=== PATIENT | female | born 1985 | race Hispanic/Latino ===

== ENCOUNTER 2017-08-28 15:58 | Day surgery (SDC) | payer SELFPAY ==
[2017-08-28] MEDS ORDERED: Betamet Acet/Betamet Na Ph 30 MG/5 ML VIAL IM SCH (16:45)
[2017-08-28 16:47] VITALS: BMI 28.3
== END 2017-08-28 16:52 | disposition home or self-care (01) ==
LOC: L&D/OP 15:58
PROVIDERS: ATTEND Obstetrics & Gynecology
DX: O26.879 Cervical shortening, unspecified trimester (principal)
CPT/HCPCS: 96372; J0702

== ENCOUNTER 2017-09-24 19:46 | Inpatient (IN) | payer OTHER ==
[2017-09-24 20:21] VITALS: BMI 29.2
[2017-09-24 20:22] VITALS: TEMP 99.1
[2017-09-24] MEDS ORDERED: Butorphanol Tartrate 1 MG/ML VIAL SLOW IVP PRN (20:43)
[2017-09-24] MEDS ORDERED: Sodium Chloride 0.9% 1,000 ML IV SCH (20:45)
--- NOTE | 2017-09-24 20:54 | PDOC.LDHP ---
Labor and Delivery H&P Chief complaint: other HPI: 32 yo LAF presents c/o 24 hr h/o of pelvic pressure and back pain. Denies bleeding or SROM. Current gestational age (weeks): 34 Due date: 11/02/17 Dating criteria: last menstrual period Grav: 3 Para: 1 OB History Details: PNC with Dr. Thomas. Cerclage placed by [facility] for 'short cervix". Steroids given 08/2017. H/o previous C/S in [place] at 27 weeks, indication unknown to patient. Current complications: none Abnormal US findings: No Past Medical History: None Current medications: pre- vitamins Previous surgical history: other (C/s as above) Allergies/Adverse Reactions: Allergies Allergy/AdvReac Type Severity Reaction Status Date / Time No Known Allergies Allergy Verified 09/24/17 20:19 Social history: none - Physical Exam Vital signs reviewed and normal: yes General: NAD Lungs: nonlabored breathing Abdomen: gravid Extremeties: trace edema FHT: variability present Browns contractions every: q 2-3 mins - Vaginal Exam cm dilated: 0 (closed, cerclage in place) Effacement: 90% Station: -1 - OB Labs Blood type: unknown RH: unknown Antibody Screen: unknown HIV: unknown RPR: unknown HEPSAg: unknown 1 hour GCT: unknown GBS: unknown - Assessment 34 3/7 weeks PTL UCs with cerclage in place Steroids given 08/2017 h/o C/S - Plan -: Hydrate and sedate. UA obtained. Dr. Thomas notied; asked me to manage. Observe closely.
[2017-09-24 21:04] LABS: Bilirubin Negative (Negative); Blood, Urine Trace (Negative); Clarity CLOUDY (Clear); Glucose, Urine (Dipstick) Negative (Negative); Leukocyte Small (Negative); Nitrite Negative (Negative); Protein, Urine (Dipstick) Trace mg/dL (Neg-Trace); Specific Gravity, Urine 1.029 (1.002-1.036); pH, Urine 5.5 (5.0-9.0)
[2017-09-24 21:06] LABS: Bacteria/HPF None Seen HPF (None Seen); Hyaline Casts/LPF 4-6 HYALINE CAST LPF (0-3 Hyaline); RBC/HPF 21-50 HPF (0-3)
[2017-09-24] MEDS: Sodium Chloride 0.9% 1,000 ML IV SCH (21:07)
[2017-09-24] MEDS ORDERED: Ondansetron HCl/PF 4 MG/2 ML Vial IVP PRN (22:01)
[2017-09-24] MEDS ORDERED: Promethazine HCl 25 MG/ML VIAL IM PRN (22:01)
--- NOTE | 2017-09-24 22:10 | PDOC.EVN ---
Event Note - Event Note Event Note: Feeling much better after IV fluids and Stadol x1. Rates pain as 2/10. Reports has had pain urinating. Says now her C/S was "a classical". FHTs stable with accels, no decels. UCs spaced out to q 5-7, mild to palpation. UA returns with ketones, blood and nitrites. Will begin Ancef IV and observe overnight.
[2017-09-24] MEDS ORDERED: CEFAZOLIN 1 GM in Sodium Chloride 0.9% 100 ML IVPB SCH (22:30)
[2017-09-24 22:44] LABS: Hemoglobin 14.2 g/dL (12.0-16.0); Mean Corpuscular HGB CONC 36.2 g/dL (32.0-36.0); Mean Corpuscular Hemoglobin 33.3 pg (27.0-31.0); Mean Platelet Volume 7.7 fL (7.4-10.4); Platelet Count 243 thou/uL (130-400); RBC Distribution Width 12.9 % (11.5-14.5); Red Blood Cell (RBC) Count 4.28 mill/uL (4.20-5.40)
[2017-09-24 23:13] VITALS: BP 115/69
[2017-09-24 23:18] LABS: HBSAg Index 0.17 S/CO (0-0.99); Hep B Surf Ag Non-Reactive S/CO (NonReactive); Syphilis Antibody Nonreactive (Nonreactive); Syphilis Antibody Index 0.06 S/CO (<1.00 Non-Reactive)
[2017-09-25] MEDS: Sodium Chloride 0.9% 1,000 ML IV SCH (04:59)
[2017-09-25] MEDS ORDERED: CEFAZOLIN 1 GM in Sodium Chloride 0.9% 100 ML IVPB SCH (06:00)
--- NOTE | 2017-09-25 06:57 | PDOC.EVN ---
Event Note - Event Note Event Note: Resting comfortably. No c/o. No bleeding or leaking. FHTs reassuring. No UCs seen overnight. A/P; PT UCs resolved, 2nd dose of Ancef infusing now. DC home on Keflex 500 QID x7 days. Precautions reviewed. Has appt. with Dr. Thomas this week.
== END 2017-09-25 07:15 | disposition home or self-care (01) | DRG 778 ==
LOC: L&D/OP 19:46 → L&D 23:48
PROVIDERS: ADMIT Obstetrics & Gynecology; ATTEND Obstetrics & Gynecology
PROC: 4A1HXCZ Monitoring of Products of Conception, Cardiac Rate, External Approach (ICD-10-PCS; principal; 2017-09-24)
PROC: 4A1HXFZ Monitoring of Products of Conception, Cardiac Rhythm, External Approach (ICD-10-PCS; 2017-09-24)
DX: O60.03 Preterm labor without delivery, third trimester (principal); O34.33 Maternal care for cervical incompetence, third trimester; O26.893 Other specified pregnancy related conditions, third trimester; R30.0 Dysuria; Z3A.34 34 weeks gestation of pregnancy
CPT/HCPCS: 81003; 81015; 85027; 86780; 86850; 86900; 86901; 87086; 87340; 99285; J0595; J0690; J7050

== ENCOUNTER 2017-10-04 14:51 | Day surgery (SDC) | payer OTHER ==
--- NOTE | 2017-10-04 16:07 | PDOC.LDHP ---
Labor and Delivery H&P Chief complaint: other (Cervlage in place, 35 weeks 6 days, prior CS...possible LOF (has vaginal progesterone in use)) HPI: Triage Patient of Dr Thomas Seen at 1600 Triage Bed B 32 yo H [id number] T 35 weeks 6 days with possible LOF. She had a CS in past that was at 27 weeks, and this she received a cerclage due to cervical shortening around 22 weeks...also on vaginal progesterone. No large gush of fluid, no VB, good FM. No recent sex. She also has a perianal skin tag that is fluid filled and she was unsure if the wetness was that. No contractions, no fever. First BP in triage was 138/92 with repeat ones being 120/70s Review of Systems: complete ROS completed and as per HPI Current gestational age (weeks): 35 (6 days) Dating criteria: last menstrual period Grav: 3 Para: 1 OB History Details: Sab1; CS X 1 Current complications: other (cerclage in use) Abnormal US findings: Yes (HX short cervix) Current medications: pre-stan vitamins, other (vaginal progesterone) Previous surgical history: other (CS HX) Allergies/Adverse Reactions: Allergies Allergy/AdvReac Type Severity Reaction Status Date / Time No Known Allergies Allergy Verified 09/24/17 20:19 Social history: none - Physical Exam Vital signs reviewed and normal: yes Abnormal vital signs: one BP 138/92 General: NAD Heart: RRR Lungs: CTAB Abdomen: gravid Extremeties: no edema FHT: category 1 Magna contractions every: none - Vaginal Exam cm dilated: 0 (Sterile spec exam performed: cerclage seen: no evidence gross dilation. I performed cough and valsalva...no evidence leakage noted. There was progesterone medication (thick white) in vagina. ) - Assessment Suspected PPROM at 35 weeks 6 days, cerclage in use, prior CS x 1...progesterone in vagina; perianal skin tag noted. - Plan Plan: observation in L&D (SSE performed by me. I do not suspect ROM. I suspect the "LOF" is related to the vaginal progesterone. Nonetheless, I have sent off an amnisure as no gross bleeding either. No evidence symptomatic contractions. Next, I have ordered CMP and Up/cr as FIRST BP was borderline (other BPs have been normal). There are no SXS of Michele, visual changes, or RUQ pain. She has repeat CS scheduled on 10/13/17)
[2017-10-04 16:36] LABS: Amnisure Test No Membranes Rupture (No Rupture)
[2017-10-04 16:37] LABS: Amnisure Internal Control QC ACCEPTABLE (ACCEPTABLE)
[2017-10-04 16:38] LABS: ALT (SGPT) Less than 7 U/L (8-55); AST (SGOT) 10 U/L (5-34); Albumin 3.3 g/dL (3.5-5.0); Alkaline Phosphatase 239 U/L (40-150); Anion Gap 11 mmol/L (10-20); BUN (Urea Nitrogen) 6 mg/dL (7.0-18.7); Bilirubin, Total 0.4 mg/dL (0.2-1.2); Calc. Creatinine Clearance 0 mL/min (70-130); Calcium 9.2 mg/dL (7.8-10.44); Carbon Dioxide 20 mmol/L (22-29); Chloride 108 mmol/L (98-107); Estimated GFR-MDRD Greater than 90; Globulin 3.1 g/dL (2.4-3.5); Glucose 87 mg/dL (70-105); Potassium 4.1 mmol/L (3.5-5.1); Protein, Total 6.4 g/dL (6.0-8.3); Sodium 135 mmol/L (136-145)
--- NOTE | 2017-10-04 16:41 | PDOC.EVN ---
Event Note - Event Note Event Note: Amnisure negative CMP ok OK for outpatient care
[2017-10-04 17:14] LABS: Creatinine, Urine 154.26 mg/dL (47-110)
== END 2017-10-04 16:49 | disposition home or self-care (01) ==
LOC: L&D/OP 14:51
PROVIDERS: ATTEND Obstetrics & Gynecology
DX: O22.43 Hemorrhoids in pregnancy, third trimester (principal); Z3A.35 35 weeks gestation of pregnancy
CPT/HCPCS: 36415; 80053; 82570; 84112; 84156; 99284

== ENCOUNTER 2017-10-13 05:34 | Inpatient (IN) | payer OTHER ==
[2017-10-13 06:14] VITALS: BMI 29.7
[2017-10-13] MEDS: Lactated Ringer's 1,000 ML IV SCH ×3 (06:15→17:11)
[2017-10-13] MEDS ORDERED: Ondansetron HCl/PF 4 MG/2 ML Vial IVP PRN ×5 (06:33→11:47)
[2017-10-13] MEDS ORDERED: Lactated Ringer's 1,000 ML IV SCH ×2 (06:33→11:16)
[2017-10-13] MEDS ORDERED: Bicitra 30 ML UDCUP PO SCH (06:33)
[2017-10-13] MEDS ORDERED: CEFAZOLIN/Water 2 GM/20 ML SYRINGE SLOW IVP SCH (06:33)
[2017-10-13] MEDS ORDERED: Promethazine HCl 25 MG/ML VIAL IM PRN ×4 (06:33→11:47)
[2017-10-13 06:37] LABS: Hemoglobin 13.5 g/dL (12.0-16.0); Mean Corpuscular HGB CONC 35.7 g/dL (32.0-36.0); Mean Corpuscular Hemoglobin 32.7 pg (27.0-31.0); Mean Corpuscular Volume 91.5 fL (78.0-98.0); Mean Platelet Volume 7.4 fL (7.4-10.4); Platelet Count 230 thou/uL (130-400); RBC Distribution Width 12.6 % (11.5-14.5); Red Blood Cell (RBC) Count 4.12 mill/uL (4.20-5.40); White Blood Cell (WBC) Count 8.3 thou/uL (4.8-10.8)
[2017-10-13] MEDS ORDERED: Oxytocin 10 UNITS/ML VIAL ONE ×2 (06:48→08:21)
[2017-10-13] MEDS ORDERED: PHENYLEPHRINE-NS 100 MCG/ML 10 ML SYRINGE ONE ×2 (06:49→09:48)
[2017-10-13] MEDS ORDERED: Morphine PF 1 MG/ML SYR ONE (06:49)
[2017-10-13] MEDS ORDERED: Ketorolac Tromethamine 30 MG/ML VIAL ONE ×2 (06:50→09:48)
[2017-10-13] MEDS ORDERED: ePHEDrine/0.9% NaCl/PF SYRINGE 50 mg/10 ml ONE (06:50)
[2017-10-13] MEDS ORDERED: Lidocaine 2% PF Inj 2 ML VIAL ONE (06:57)
[2017-10-13] MEDS ORDERED: Bupivacaine 0.75% W/DEXTROSE 8.25% 2 ML AMP ONE (06:57)
[2017-10-13] MEDS ORDERED: Meperidine HCl/PF 25 MG/ML VIAL SLOW IVP PRN (07:07)
[2017-10-13] MEDS ORDERED: Promethazine HCl 25 MG SUPP PR PRN ×2 (07:07→11:47)
[2017-10-13] MEDS ORDERED: Naloxone HCl 0.4 mg/ml Vial IV PRN ×2 (07:07→11:47)
[2017-10-13] MEDS ORDERED: Naloxone HCl 0.4 mg/ml Vial IVP PRN ×4 (07:07→11:47)
[2017-10-13] MEDS ORDERED: Ketorolac Tromethamine 30 MG/ML VIAL IVP PRN ×2 (07:07→11:47)
[2017-10-13] MEDS ORDERED: Eucerin (Mineral Oil/Petrolatum,White) 30 gm Jar TOP PRN ×2 (07:07→11:47)
[2017-10-13] MEDS ORDERED: Communication Order-Pharmacy FS SCH ×2 (07:15→12:00)
[2017-10-13 07:22] LABS: HBSAg Index 0.25 S/CO (0-0.99); Hep B Surf Ag Non-Reactive S/CO (NonReactive); Syphilis Antibody Nonreactive (Nonreactive); Syphilis Antibody Index 0.05 S/CO (<1.00 Non-Reactive)
[2017-10-13] MEDS ORDERED: Ondansetron HCl/PF 4 MG/2 ML Vial ONE ×2 (08:03→09:48)
--- NOTE | 2017-10-13 08:19 | PDOC.OPDEL ---
OB Operative/Delivery Note Delivery Dr/Surgeon: Shant Thomas Pre-Delivery Diagnosis: scheduled section, other (removal of hung cerclage) Procedure/Post Delivery Dx: repeat low transverse CS Weeks gestation: 37 (prior low vertical, reccomended early term delivery by m) Anesthesia: spinal - Findings A Sex: female Weight: 6 lb 8 oz - 1 min: 8 - 5 min: 9 - Additional Findings/Plan Placenta delivered: manual removal findings: low transverse hysterotomy without extension Estimated blood loss: qbl pending Post delivery plan: routine recovery
--- NOTE | 2017-10-13 08:49 | OP ---
DATE OF PROCEDURE: 10/13/2017 TIME OF SERVICE: 0745 DICTATION TIME: 08 PREOPERATIVE DIAGNOSES: 1. Cerclage in situ, incompetent cervix. 2. History of prior low vertical incision at 27 weeks, now at 37 weeks gestation. POSTOPERATIVE DIAGNOSES: 1. Cerclage in situ, incompetent cervix. 2. History of prior low vertical incision at 27 weeks, now at 37 weeks gestation. PROCEDURE: Repeat low transverse section without extension and removal of Sy cerclage . SURGEON: Oswaldo Thomas M.D. for [facility]. CLINICAL ADMINISTRATOR: Teetee Bran D.O for [facility]. ANESTHESIA: Subarachnoid block. ESTIMATED BLOOD LOSS: QBL pending, but did not seem excessive. MEDICATIONS: Two grams Ancef preincision. DVT PROPHYLAXIS: SCDs. DRAINS: Bonilla to gravity with clear urine. OPERATIVE FINDINGS: 1. A vigorous female infant, cephalic presentation, clear fluid, 6 pounds 8 ounces, 8 and 9 Apgars, to nursery. 2. Normal appearing uterus, tubes, and ovaries bilaterally. 3. Hemostasis with clear urine. 4. Counts correct at the end of the procedure. DISPOSITION: To the recovery room in good condition. DESCRIPTION OF OPERATIVE PROCEDURE: After obtaining proper informed consent, the patient was taken t o the operating room. Subarachnoid block achieved without difficulty. Bonilla catheter was placed. A side-end speculum placed in vagina, cervix identified. Cerclage identified with knots at 12 hours. It was grasped with an Allis clamp, pulled taut and cut one portion of the cerclage with Viviana s cissors. The cerclage came out in its entirety. On inspection, the cervix was noted to be 2-3 cm, 8 0% effaced after removal. The patient was then prepped and draped and the squaring shear operator changed his glove s and turned his attention to the abdominal portion of procedure. Previous Pfannenstiel incision was incised sharply and carried down to the fascia which was incised sharply superior and laterally. Os ler's were used to dissect the rectus off superiorly and inferiorly. Peritoneum entered bluntly, [place] ing care to avoid trauma to underlying viscera. Mild amount of adhesions of omentum and peritoneum t o the lower uterine segment were encountered and these were taken down sharply. The Sal 0 retract or placed inside. Thin lower uterine segment was encountered and a low transverse hysterotomy incisi on was made just above the level of the vesicouterine peritoneal fold. This was extended superior an d laterally. The 's head elevated through the hysterotomy, suctioned, cord clamped and cut, patel nded off to team in attendance. Usual cord blood sample obtained. Placenta removed manuall y. Hysterotomy noted to be without extension and uterus left in situ. It was closed using a running locking #1 Monocryl suture in a single layer fashion. Gutters were irrigated out. Reinspection of the hysterotomy revealed it to be dry. Sal 0 retractor was removed and the rectus was inspected a nd noted be dry. Fascia reapproximated using 0 PDS suture. Subcutaneous tissue irrigated and render ed hemostatic with Bovie cautery, reapproximated using a 2-0 plain gut. Skin reapproximated with sta ples. The patient was taken to recovery room in good condition.
[2017-10-13] MEDS ORDERED: Meperidine HCl/PF 25 MG/ML VIAL ONE (10:24)
[2017-10-13] MEDS ORDERED: Zolpidem Tartrate 5 MG TAB PO PRN (11:16)
[2017-10-13] MEDS ORDERED: Adacel (T-DAP) 0.5 ML VIAL IM ONE (11:16)
[2017-10-13] MEDS ORDERED: NS / Oxytocin 40 units/1000ml 1,000 ML IV SCH (11:16)
[2017-10-13] MEDS ORDERED: Lanolin Ointment 7 GM TUBE TOP PRN (11:16)
[2017-10-13] MEDS ORDERED: Measles/Mumps/Rubella 10 MCG/0.5 ML VIAL SC ONE (11:16)
[2017-10-13] MEDS ORDERED: Varicella virus, LIVE 0.5 ML VIAL SC ONE (11:16)
[2017-10-13] MEDS ORDERED: diphenhydrAMINE 25 MG CAP PO PRN (11:16)
[2017-10-13] MEDS ORDERED: Acetaminophen 325 MG TAB PO PRN (11:16)
[2017-10-13] MEDS ORDERED: Simethicone Chewable 80 MG TAB PO PRN (11:16)
[2017-10-13] MEDS ORDERED: Docusate Calcium (SURFAK) 240 MG CAP PO SCH (11:30)
[2017-10-13] MEDS ORDERED: Prenatal Vitamin 1 TAB PO SCH (11:30)
[2017-10-13] MEDS ORDERED: diphenhydrAMINE 50 MG/ML VIAL IVP PRN (11:47)
[2017-10-13] MEDS ORDERED: Ibuprofen 800 MG TAB PO SCH (14:00)
[2017-10-13] MEDS: Docusate Calcium (SURFAK) 240 MG CAP PO SCH (23:54)
[2017-10-13] MEDS ORDERED: Meperidine HCl/PF 25 MG/ML VIAL IM PRN (23:59)
[2017-10-14] MEDS: HYDROcodone/Acetaminophen 5/325 mg Tablet PO PRN ×3 (05:16→20:30)
[2017-10-14 06:03] LABS: Hemoglobin 12.5 g/dL (12.0-16.0); Mean Corpuscular HGB CONC 36.6 g/dL (32.0-36.0); Mean Corpuscular Hemoglobin 33.5 pg (27.0-31.0); Mean Corpuscular Volume 91.5 fL (78.0-98.0); Mean Platelet Volume 6.5 fL (7.4-10.4); Platelet Count 171 thou/uL (130-400); RBC Distribution Width 12.5 % (11.5-14.5); Red Blood Cell (RBC) Count 3.75 mill/uL (4.20-5.40); White Blood Cell (WBC) Count 9.2 thou/uL (4.8-10.8)
[2017-10-14] MEDS: Prenatal Vitamin 1 TAB PO SCH (09:01)
[2017-10-14] MEDS: Docusate Calcium (SURFAK) 240 MG CAP PO SCH ×2 (09:01→20:30)
--- NOTE | 2017-10-14 12:07 | PDOC.PP ---
Post Progress Note Post Day #: 1 PO intake tolerated: yes Flatus: yes Ambulation: yes Vital Signs (12 hours) Temp Pulse Resp BP 10/14/17 12:00 98.8 F 84 20 119/78 10/14/17 08:00 98.7 F 80 20 10/14/17 07:57 98.7 F 80 20 100/56 L 10/14/17 04:50 98.2 F 79 18 Weight Weight 173 lb - Physical Examination General: NAD Cardiovascular: no m/r/g, RRR Respiratory: clear to auscultation bilaterally, non-labored breathing Abdominal: + bowel sounds, lochia, no distention Extremities: negative homans (B) Skin: CS incision dry & intact, no rash Neurological: no gross focal deficits Psychiatric: A&Ox3, normal affect Result Diagrams: 10/14/17 05:52 Additional Labs: Post Labs Blood Type O POSITIVE 10/13/17 06:00 Hep Bs Antigen Non-Reactive S/CO (NonReactive) 10/13/17 06:00 - Assessment/Plan doing well routine post cs care
[2017-10-14] MEDS: Ibuprofen 800 MG TAB PO SCH ×2 (14:11→21:15)
[2017-10-15] MEDS: HYDROcodone/Acetaminophen 5/325 mg Tablet PO PRN ×2 (02:05→06:34)
[2017-10-15] MEDS: Ibuprofen 800 MG TAB PO SCH (06:32)
[2017-10-15 07:54] VITALS: BP 127/77; TEMP 98.2
--- NOTE | 2017-10-15 08:28 | DIS ---
DATE OF ENCOUNTER: 10/15/2017 DATE OF ADMISSION: 10/13/2017 PRIMARY OB: Oswaldo Thomas M.D. ADMITTING DIAGNOSIS: Scheduled repeat . DISCHARGE DIAGNOSIS: Scheduled repeat . PROCEDURE: Repeat . CONSULTATIONS: None. HOSPITAL COURSE: Patient is a 32-year-old female, who has presented for a scheduled repeat with removal of a Sy cerclage. For complete details, please refer to the dictated note. The patient's postoperative course has been uncomplicated. She is now postop day #2, is tolerating p.o., voiding on her own, having decreased lochia. Of note, the patient also was having good pain control . PHYSICAL EXAMINATION: VITAL SIGNS: Blood pressure today is 127/77, temperature 98.2, pulse of 91, respiratory rate of 20. GENERAL: The patient appears to be in no acute distress. She is alert and oriented, cooperative and pleasant to interact with. HEENT: Head is normocephalic, atraumatic. ABDOMEN: Fundus is firm. Incision is clean, dry, and intact. EXTREMITIES: Nontender, nonedematous. Her post-delivery hemoglobin was 12.5, hematocrit 34.3, platelets 171,000. The patient is being discharged to home. She has instructions to follow up with Dr. Thomas on for staple removal. She also has instructions to limit her activities to a 15-pound lifting limi t for the next 4-6 weeks, and she is not to drive on her own for the next 2 weeks. The patient has b een given instructions to seek medical attention should she experience fever, increasing pain or blee ding, redness, drainage from the incision site. The patient has prescriptions at the pharmacy, hydro codone and ibuprofen.
[2017-10-15] MEDS: Prenatal Vitamin 1 TAB PO SCH (08:50)
[2017-10-15] MEDS: Docusate Calcium (SURFAK) 240 MG CAP PO SCH (08:50)
== END 2017-10-15 11:55 | disposition home or self-care (01) | DRG 766 ==
LOC: L&D 05:34 → 3SW 10:46
PROVIDERS: ADMIT Obstetrics & Gynecology; ATTEND Obstetrics & Gynecology
PROC: 10D00Z1 Extraction of Products of Conception, Low, Open Approach (ICD-10-PCS; principal; 2017-10-13)
PROC: 0UCC0ZZ Extirpation of Matter from Cervix, Open Approach (ICD-10-PCS; 2017-10-13)
DX: O34.211 Maternal care for low transverse scar from previous cesarean delivery (principal); Z37.0 Single live birth; Z3A.37 37 weeks gestation of pregnancy; N88.3 Incompetence of cervix uteri
CPT/HCPCS: 36415; 51702; 85027; 86780; 86850; 86900; 86901; 87340; 90716; J1885; J2175; J2274; J2405; J2590; J3490

== ENCOUNTER 2017-10-21 07:56 | Emergency (ER) | payer OTHER | END 2017-10-21 09:42 | disposition home or self-care (01) | LOC: ERS 07:56 | DX: Z39.2 Encounter for routine postpartum follow-up (principal) | CPT/HCPCS: 99283 ==